=== PATIENT | female | born 1975 | race Two or more races ===

== ENCOUNTER 2018-02-27 10:56 | Emergency (ER) | payer MEDICAID, OTHER ==
--- NOTE | 2018-02-27 11:17 | EDPHY ---
H & P Stated Complaint: r knee and calf pain/xrays yesterday/ swollen l leg Time Seen by Provider: 02/27/18 11:09 HPI/ROS: HPI: This is a 42-year-old female who presents with Chief Complaint: r knee and calf pain/xrays yesterday/ swollen l leg Location: Right lower leg Quality: Pain Duration: 1 month Signs and Symptoms: No bleeding, no radiation, no numbness, no weakness, no tingling, no incontinence, + decreased range of motion, + swelling, + pain, no fever, no skin color change Timing: Worsening Severity: 7 out 10 Context: Patient presents with complaints of right calf swelling and pain over the last week that is gradually worsening. She also complains of right anterior knee pain with mild decreased range of motion and increase of pain with flexion activities. Patient had right 1st great toe fracture approximately 7 months ago. She reports that she has had persistent pain in her right foot and primarily the right 1st toe and heel area. One month ago she was seen by Podiatry, Dr. Wooten, and prescribed orthotics. She reports that she wore the orthotics but it made her right heel pain worse. After wearing orthotics, she noted that her right lower leg began to swell. She denies any pitting edema/shortness of breath/chest pain/skin color changes/ paresthesias/weakness. She is extremely upset that she has not been given any pain medications. She tried taking Tylenol yesterday but there was no relief of the pain. She is using crutches borrowed from a family member to aid her ambulation. No history of diabetes mellitus. Modifying Factors: Cm Comment: ROS: see HPI Constitutional: No fever, no chills, no weight loss Eyes: No blurred vision Respiratory: No shortness of breath, no cough Cardiovascular: No chest pain Gastrointestinal: No nausea, no vomiting no diarrhea Genitourinary: No dysuria Extremities: No myalgias Neurologic: No weakness, no numbness Skin: No rashes Hematologic: No bruising, no bleeding MEDICAL/SURGICAL/SOCIAL HISTORY: Medical history: Does not take any regular medications. Surgical history: Denies Social history: . CONSTITUTIONAL: Polite and cooperative middle-aged female, awake and alert, no obvious distress HEENT: Atraumatic and normocephalic. Cardiovascular: Normal S1/S2, regular rate, regular rhythm, without murmur rub or gallop. PULMONARY/CHEST: Symmetrical and nontender. no crepitus. Clear to auscultation bilaterally. Good air movement. No accessory muscle usage. ABDOMEN: Soft, nondistended, nontender, no ecchymosis. EXTREMITIES: 2/2 pulses, strength 5/5, right KNEE: no effusion, mild medial and lateral joint line tenderness, full extension to 180, flexion to 90. No pain with varus and valgus exam. No pain with anterior drawer or posterior drawer test. Right calf is mildly larger than left calf. Pain with palpation of the right calf. No palpable cords or varicose veins noted. Right Ankle: Plantar flexion to 50, dorsiflexion to 20. Foot inversion to 35 degree. No tenderness/swelling Anterior talofibular ligament. No tenderness/swelling Calcaneofibular ligament, no tenderness/swelling posterior talofibular ligament , no tenderness/swelling posterior inferior tibiofibular ligament. Achilles tendon intact. Right great toe shows no tenderness with palpation. Patient shows mild tenderness on the calcaneus area; no fluctuance/skin color changes noted. DIP/PIP/MCP flexion/extension intact with good light touch sensation. no deformities, no clubbing, no cyanosis or edema. NEUROLOGICAL: no focal neuro deficits. GCS 15. Light touch sensation intact. SKIN: Warm and dry, no erythema. no rash. Good capillary refill. Source: Patient, [employer] Exam Limitations: Language barrier (kazakh) - Personal History LMP (Females 10-55): 15-21 Days Ago Current Tetanus/Diphtheria Vaccine: Unsure - Medical/Surgical History Hx Asthma: No Hx Chronic Respiratory Disease: No Hx Diabetes: No Hx Cardiac Disease: No Hx Renal Disease: No Hx Cirrhosis: No Hx Alcoholism: No Hx HIV/AIDS: No Hx Splenectomy or Spleen Trauma: No Other PMH: fx r great toe - Social History Smoking Status: Never smoked Constitutional: Initial Vital Signs Temperature (C) 36.5 C 02/27/18 11:00 Heart Rate 84 02/27/18 11:00 Respiratory Rate 18 02/27/18 11:00 Blood Pressure 139/78 H 02/27/18 11:00 O2 Sat (%) 95 02/27/18 11:00 O2 Delivery Mode Room Air Allergies/Adverse Reactions: No Known Allergies Allergy (Unverified 02/27/18 11:00) Home Medications: Medication Instructions Recorded Meloxicam [Mobic 15 mg] 15 mg PO DAILY #14 tablet 02/27/18 traMADol [Ultram 50 mg (*)] 50 mg PO Q6 PRN #10 tab 02/27/18 Medical Decision Making - Diagnostics Imaging Results: Imaging Impressions Extremity Venous Study 02/27/18 11:17 Impression: No evidence of deep vein thrombosis in the right lower extremity. Results called and discussed with Patricia COMBS on 02/27/2018 at 12:21 Foot X-Ray 02/27/18 11:18 Impression: There is no acute or subacute osseous abnormality. Knee X-Ray 02/27/18 11:18 Impression: There is no acute or subacute osseous abnormality. If there is progression of the patient's symptoms, MR imaging could be considered. ED Course/Re-evaluation: Right knee x-ray, right foot x-ray, right lower extremity ultrasound ordered Vital signs stable. Patient given ibuprofen 800 mg and Percocet x1 No signs of neurovascular compromise/tenting of skin/compartment syndrome/ extremities and joints examined above and below area of concern and are neurovascularly intact/cellulitis/septic arthritis. 1208: Right knee x-ray my read shows no fracture, significant degenerative changes. 1210: Right foot x-ray my read shows small calcaneal spur, no fracture/soft tissue swelling. Called by radiologist who advised that right lower extremity ultrasound is negative for deep venous thrombosis. Reassessed patient. Crutches fitted by nurse tech and education provided on using crutches. Patient is to follow up with Podiatry for her chronic foot pain. She was given a prescription for Mobic and Tramadol. This patient was seen under the supervision of my secondary supervising physician. I evaluated care for this patient independently. Discussed this patient with Dr. Willard who did not see the patient. Differential Diagnosis: Leg swelling including but not limited to hypoalbuminemia, congestive heart failure, cor pulmonale, chronic venous stasis and DVT. - Data Points Medications Given: Discontinued Medications Ibuprofen (Motrin) 800 mg PO EDNOW ONE Stop: 02/27/18 11:19 Last Admin: 02/27/18 11:42 Dose: 800 mg Oxycodone/Acetaminophen (Percocet 5/325) 1 tab PO EDNOW ONE Stop: 02/27/18 11:19 Last Admin: 02/27/18 11:42 Dose: 1 tab Departure - Departure Disposition: Home, Routine, Self-Care Clinical Impression: Chronic pain in right foot, Musculoskeletal pain of right lower extremity Condition: Good Instructions: Chronic Pain (ED) Additional Instructions: Take Mobic in the morning with food for the next several days. Use tramadol every 8 hours as needed for severe/break through pain. Use crutches to aid ambulation decreased weight-bearing on right lower extremity until pain resolved. Follow-up with Podiatry for further evaluation and recommendations. Lennox Mobic en la manana con comida para los proximos varios castaneda. Usar Tramadol cada 8 horas jared sea necesario para dolor kati/dolor no controlado con Mobic. Usar las muletas para ayudar con ambulacion con menos apollo de la extremidad derecha baja hasta que el dolor se halla resuelto. Sana de seguimiento con Podologo para mas evaluacion y recomendaciones. Referrals: Dev Cool DPM [Doctor of Podiatric Medicine] - As per Instructions Prescriptions: Meloxicam [Mobic 15 mg] 15 mg PO DAILY #14 tablet traMADol [Ultram 50 mg (*)] 50 mg PO Q6 PRN #10 tab PRN Reason: Pain, Severe Print Language: British
[2018-02-27] MEDS ORDERED: OXYCODONE/APAP 5/325 TAB PO ONE (11:18)
[2018-02-27] MEDS ORDERED: IBUPROFEN 800 MG TAB PO ONE (11:18)
[2018-02-27 12:54] VITALS: BP 110/80
== END 2018-02-27 13:19 | disposition home or self-care (01) ==
DX: M79.604 Pain in right leg (principal); M79.671 Pain in right foot; G89.29 Other chronic pain